=== PATIENT | male | born 1975 | race Caucasian/White ===

== ENCOUNTER 2020-02-29 03:34 | Emergency (ER) | payer OTHER ==
[2020-02-29 03:46] VITALS: BP 124/89; PULSE 55; TEMP 97.8; BMI 28.0
[2020-02-29] MEDS ORDERED: SODIUM CHLORIDE 1,000 ML IV STA (03:58)
[2020-02-29] MEDS ORDERED: KETOROLAC TROMETHAMINE 30 MG/1 ML VIAL IVPUSH ONE (03:58)
[2020-02-29] MEDS ORDERED: ONDANSETRON 4 MG/2 ML VIAL IVPUSH ONE (03:58)
--- NOTE | 2020-02-29 04:03 | PDOC ---
History of Present Illness - General Chief Complaint: Pain, Acute Stated Complaint: ABD PAIN Time Seen by Provider: 02/29/20 03:38 - History of Present Illness Initial Comments: 02/29/20 03:59 This 44-year-old man with no significant past medical history presents with left lower quadrant abdominal pain/left flank pain for the last 5 hours. Patient states that he had similar pain in that area (milder intensity) approximately 2 weeks ago that resolved spontaneously after several hours. Tonight, patient had nausea with one episode of vomiting (partially digested food only). No fever/chills/constipation/diarrhea. No dysuria/urinary frequency urgency/hematuria. No previous history of renal colic or known family history o f kidney stones. The patient states that he has been told he has elevated uric acid levels in his blood although he is never been diagnosed with gout. Patient states that he had colonoscopy 5 years ago that was reportedly normal; no history of diverticulitis/diverticular disease On no daily medications No known allergies Hernia (inguinal) surgery as a young child Non-smoker/denies daily alcohol or other recreational drug use Past History - Medical History Allergies/Adverse Reactions: Allergies Allergy/AdvReac Type Severity Reaction Status Date / Time No Known Allergies Allergy Unverified 02/29/20 03:35 Home Medications: Ambulatory Orders Ondansetron [Zofran *Odt*] 4 mg SL BID PRN #8 od.tablet 02/29/20 Oxycodone HCl/Acetaminophen [Percocet 5-325 mg Tablet] 1 tab PO Q6H PRN #12 ta blet MDD 4 tabs 02/29/20 Tamsulosin HCl [Flomax] 0.4 mg PO DAILY #10 cap.er.24h 02/29/20 COPD: No - Surgical History Abdominal Surgery: Yes (HERNIA A CHILD) - Psycho-Social/Smoking History Smoking History: Never smoked Review of Systems - Review of Systems Able to Perform ROS?: Yes Comments:: 12 point review of systems is negative except for what is noted in the history of present illness *Physical Exam - Vital Signs Last Vital Signs Temp Pulse Resp BP Pulse Ox 97.8 F 55 L 16 124/89 98 02/29/20 03:37 02/29/20 03:37 02/29/20 03:37 02/29/20 03:37 02/29/20 03:37 - Physical Exam GENERAL: Adult male, alert and oriented x3, in mild distress secondary to left lower quadrant abdominal pain HEAD: Normal with no signs of trauma. EYES: PERRLA, EOMI, sclera anicteric, conjunctiva clear. ENT: Ears normal, nares patent, oropharynx clear without exudates. Dry mucous membranes. NECK: Normal range of motion, supple without lymphadenopathy, JVD, or masses. LUNGS: Breath sounds equal, clear to auscultation bilaterally. No wheezes, and no crackles. HEART:Regular rate and rhythm, normal S1 and S2 without murmur, rub or gallop. ABDOMEN:.normal bowel sounds; moderate LLQ tenderness without guarding or rebound tenderness; no masses Mild left flank/left CVA tenderness EXTREMITIES: Normal range of motion, no edema. No clubbing or cyanosis. No erythema, or tenderness. NEUROLOGICAL: Cranial nerves II through XII grossly intact. Normal speech. No focal neurological deficits. SKIN: Warm, Dry, normal turgor, no rashes or lesions noted. ED Treatment Course - LABORATORY CBC & Chemistry Diagram: 02/29/20 04:05 02/29/20 04:05 Medical Decision Making - Medical Decision Making 02/29/20 06:45 Patient received 1 L normal saline, 30 mg Toradol IV, 4 mg of Zofran IV Urinalysis/CBC/chemistry profile sent Laboratory evaluation notable for 3+ blood in urine; white blood cell count was mildly elevated 12,500 Patient had 1 more episode of severe pain in the left lower quadrant, then feel more comfortable Renal stone protocol CT performed: 8 mm ureteral stone with mild hydronephrosis present Results discussed with the patient. He continues to feel comfortable and will be discharged with instructions to drink plenty of water. Flomax 0.4 mg given Prescriptions for Zofran ODT 4 mg, Flomax 0.4 mg and Percocet 5/325 (#12) to be taken every 6 hours as needed up to 4 tabs a day, sent to his pharmacy Patient does not have a urologist and was given referral information for Dr. Wiliam Morales; he should call the office later today arrange follow-up within the next 5 days. If patient has recurrent severe pain, nausea/vomiting or develops fever he should return to the emergency room immediately Discharge - Discharge Information Problems reviewed: Yes Clinical Impression/Diagnosis: Kidney stone on left side Condition: Improved Disposition: HOME - Additional Discharge Information Prescriptions: Tamsulosin HCl [Flomax] 0.4 mg PO DAILY #10 cap.er.24h Oxycodone HCl/Acetaminophen [Percocet 5-325 mg Tablet] 1 tab PO Q6H PRN #12 tablet MDD 4 tabs PRN Reason: Severe Pain Ondansetron [Zofran *Odt*] 4 mg SL BID PRN #8 od.tablet PRN Reason: Nausea - Follow up/Referral Referrals: Wiliam Morales MD [Staff Physician] - - Patient Discharge Instructions Patient Printed Discharge Instructions: Kidney Stones -- Adult Additional Instructions: Drink plenty of water Ibuprofen/naproxen/acetaminophen for mild to moderate pain Percocet 5/325 every 6 hours as needed for severe pain Flomax 0.4 mg daily Contact urologist ( Dr. Morales or other) and arrange follow-up within the next 5 days Return to ER if you have persistent severe pain or if you experience nausea/vomiting/fever - Post Discharge Activity
[2020-02-29] MEDS ORDERED: ONDANSETRON 4 MG/2 ML VIAL ONE (04:09)
[2020-02-29] MEDS ORDERED: KETOROLAC TROMETHAMINE 30 MG/1 ML VIAL ONE (04:09)
[2020-02-29 04:39] LABS: BASO % 0.7 % (0-2.0); EOS % 3.7 % (0-4.5); HEMATOCRIT 44.2 % (35.4-49); HEMOGLOBIN 14.9 GM/dL (11.7-16.9); LYMPH % 13.7 % (8-40); MCH 31.1 pg (25.7-33.7); MCHC 33.6 g/dl (32.0-35.9); MEAN CELL VOLUME 92.6 fl (80-96); MEAN PLT VOLUME 9.5 fl (7.5-11.1); NEUT % 75.9 % (42.8-82.8); PLATELET COUNT 205 K/MM3 (134-434); RBC 4.78 M/mm3 (4.00-5.60); WHITE BLOOD COUNT 12.5 K/mm3 (4.0-10.0)
[2020-02-29 04:41] LABS: EPI CELLS 4 /uL (0-25.1); HYALINE CASTS 0 /uL (0-3.1); URINE APPEARANCE CLOUDY; URINE BACTERIA 9 /uL (0-1359); URINE BILIRUBIN NEGATIVE (NEGATIVE); URINE COLOR YELLOW; URINE GLUCOSE (UA) NEGATIVE (NEGATIVE); URINE KETONE TRACE (NEGATIVE); URINE LEUK ESTERASE TRACE (NEGATIVE); URINE NITRITE NEGATIVE (NEGATIVE); URINE PROTEIN 1+ (NEGATIVE); URINE RBC 727 /uL (0-23.9); URINE UROBILINOGEN 0.2 mg/dL (0.2-1.0); URINE WBC 31 /uL (0-25.8)
[2020-02-29 05:13] LABS: ALBUMIN 4.3 g/dl (3.4-5.0); BILIRUBIN,TOTAL 0.4 mg/dL (0.2-1); BLOOD UREA NITROGEN 17.3 mg/dL (7-18); CALCIUM 9.3 mg/dL (8.5-10.1); CREATININE 1.2 mg/dL (0.55-1.3); POTASSIUM 4.2 mmol/L (3.5-5.1); TOT PROT 7.3 g/dl (6.4-8.2)
[2020-02-29] MEDS ORDERED: TAMSULOSIN HCL 0.4 MG CAP PO ONE (06:38)
[2020-02-29] MEDS ORDERED: TAMSULOSIN HCL 0.4 MG CAP ONE (06:40)
[2020-02-29 08:38] LABS: URINE CRYSTALS CA OXALATE FEW /hpf
== END 2020-02-29 06:48 | disposition home or self-care (01) ==
LOC: FER 03:34
PROC: 3E0333Z Introduction of Anti-inflammatory into Peripheral Vein, Percutaneous Approach (ICD-10-PCS; principal; 2020-02-29)
PROC: 3E033GC Introduction of Other Therapeutic Substance into Peripheral Vein, Percutaneous Approach (ICD-10-PCS; 2020-02-29)
PROC: 3E0337Z Introduction of Electrolytic and Water Balance Substance into Peripheral Vein, Percutaneous Approach (ICD-10-PCS; 2020-02-29)
DX: N20.0 Calculus of kidney (principal)
CPT/HCPCS: 36415; 74176-TC; 80053; 81003; 85025; 99284-25